=== PATIENT | female | born 1960 | race Two or more races ===

== ENCOUNTER 2017-09-14 09:47 | Day surgery (SDC) | payer BC, OTHER ==
[2017-09-14] MEDS ORDERED: CHONDR SU A NA/HYALUR INTRAOC KIT (SURGICARE) ONE (10:04)
[2017-09-14] MEDS ORDERED: LIDOCAINE 1% INJ-PF (10 MG/ML) 30 ML SDV ONE (10:04)
[2017-09-14] MEDS ORDERED: EPINEPHRINE INJ/PF 1 MG/1 ML AMPULE ONE (10:04)
[2017-09-14] MEDS: TROPICAMIDE 1% OPH SOLN 3 ML OD PRN ×3 (10:25→10:45)
[2017-09-14] MEDS: CYCLOPENTOLATE 0.2%/PHENYLEPHRINE 1% OPH SOLN 2 ML OD PRN ×3 (10:25→10:45)
[2017-09-14] MEDS: BESIFLOXACIN HCL 0.6% OPH SUSP 5 ML BOTTLE OD PRN ×4 (10:25→11:33)
[2017-09-14] MEDS: TETRACAINE HCL 0.5% OPH SOLN 2 ML OD PRN ×3 (10:26→11:09)
[2017-09-14] MEDS: KETOROLAC TROMETHAMINE 0.45% 4 DROP/0.4 ML DROPERETTE OD PRN ×2 (10:26→12:01)
[2017-09-14] MEDS ORDERED: MIDAZOLAM 2 MG/2 ML INJ ONE ×2 (10:50)
--- NOTE | 2017-09-14 21:58 | [facility] OPERATIVE REPORT E ---
[facility] Operative Report NAME: GIORGIO ASCENCIO AGE: 57Y DATE OF SURGERY: 09/14/2017 ROOM: PREOPERATIVE DIAGNOSIS: CATARACT, RIGHT EYE. POSTOPERATIVE DIAGNOSIS: CATARACT, RIGHT EYE. OPERATION: Cataract extraction with intraocular lens implant of the right eye. SURGEON: ABRIL FRANCES M.D. ANESTHESIA: Topical. PROCEDURE: After obtaining appropriate consent, the patient's right eye was prepped and draped in sterile fashion as well as the surgeon in a sterile manner and cataract surgery was started. First a paracentesis blade was used to make a small side-port incision. Viscoelastic was used to inflate the anterior chamber. Next a 2.4 mm incision was made with the paracentesis blade. A continuous capsulorrhexis incision was made using a cystotome and Utrata forceps. Following this hydrodissection was carried out to make the lens fully loose and mobile and it was rotated 90 degrees. Following this, a mcffgv-uyz-sarietg technique was used to phacoemulsify the lens with a CDE of 4.37. The remaining cortex was removed with irrigation/aspiration. Provisc was instilled into the capsular bag to inflate the bag. A SN60WF, 23.0 diopter lens was placed. The remaining viscoelastic material was removed with irrigation/aspiration. Following this, a 10-0 nylon suture was used to close the incision and it was found to be watertight. Vigamox was instilled in the eye and a protective shield was placed over the eye. The patient returned to the postoperative recovery in stable condition. DICTATING PHYSICIAN: ABRIL FRANCES M.D. 5020M 2153 Y#: [birth year] ID: [id number] JOB#: [id number] ACCT: [id number] cc:ABRIL FRANCES M.D. >
--- NOTE | 2017-09-14 22:04 | [facility] DISCHARGE SUMMARY E ---
[facility] Discharge Summary NAME: GIORGIO ASCENCIO AGE: 57Y ADMITTED: 09/14/2017 DISCHARGED: 09/14/2017 HOSPITAL COURSE: This is a 57-year-old female who underwent cataract extraction of the right eye. DIAGNOSIS: CATARACT, RIGHT EYE. She underwent surgery because she was having difficulty driving at night secondary to glare from headlights. DISCHARGE INSTRUCTIONS: She should be on a regular diet. No bending at her waist, no heavy lifting. She should use Besivance, Ilevro, and Durezol at 3 p.m. and 8 p.m. and sleep with a rigid shield. I will see her for her 1 day postoperative tomorrow. DICTATING PHYSICIAN: ABRIL FRANCES M.D. 5020M 2155 [facility]#: [id number] 2006 ID: [id number] JOB#: [id number] ACCT: [id number] cc:ABRIL FRANCES M.D. >
== END 2017-09-14 12:21 | disposition home or self-care (01) ==
LOC: SC 09:47
PROVIDERS: ATTEND Internal Medicine
PROC: 08RJ3JZ Replacement of Right Lens with Synthetic Substitute, Percutaneous Approach (ICD-10-PCS; principal; 2017-09-14 11:30)
DX: H25.813 Combined forms of age-related cataract, bilateral (principal); E11.9 Type 2 diabetes mellitus without complications; I10 Essential (primary) hypertension; G62.9 Polyneuropathy, unspecified; E78.00 Pure hypercholesterolemia, unspecified; Z88.8 Allergy status to other drugs, medicaments and biological substances; Z79.82 Long term (current) use of aspirin; Z79.899 Other long term (current) drug therapy; Z79.4 Long term (current) use of insulin
CPT/HCPCS: 66984; 82962; V2632; J2250; J3490 ×2; J0171; 160

== ENCOUNTER 2017-10-05 06:50 | Day surgery (SDC) | payer BC, OTHER ==
[~2017-10-05 06:50] MED LIST: KETOROLAC TROMETHAMINE 0.45% 4 DROP/0.4 ML DROPERETTE OS PRN
[2017-10-05] MEDS: TETRACAINE HCL 0.5% OPH SOLN 2 ML OS PRN ×3 (07:13→08:14)
[2017-10-05] MEDS: BESIFLOXACIN HCL 0.6% OPH SUSP 5 ML BOTTLE OS PRN ×4 (07:14→08:32)
[2017-10-05] MEDS: TROPICAMIDE 1% OPH SOLN 3 ML OS PRN ×3 (07:14→07:43)
[2017-10-05] MEDS: CYCLOPENTOLATE 0.2%/PHENYLEPHRINE 1% OPH SOLN 2 ML OS PRN ×3 (07:14→07:43)
[2017-10-05] MEDS ORDERED: LIDOCAINE 1% INJ-PF (10 MG/ML) 30 ML SDV ONE (07:14)
[2017-10-05] MEDS ORDERED: MIDAZOLAM 2 MG/2 ML INJ ONE (07:34)
[2017-10-05] MEDS ORDERED: FENTANYL CITRATE INJ/PF 100 MCG/2 ML AMPUL ONE (08:14)
[2017-10-05] MEDS: CHONDR SU A NA/HYALUR INTRAOC KIT (SURGICARE) ONE ×2 (08:14)
[2017-10-05] MEDS: EPINEPHRINE INJ/PF 1 MG/1 ML AMPULE ONE ×2 (08:14)
[2017-10-05] MEDS: TOBRAMYCIN SULFATE/DEXAMETH OPH OINTMENT 3.5 GM ONE ×2 (08:32)
--- NOTE | 2017-10-05 16:29 | [facility] OPERATIVE REPORT E ---
[facility] Oper[facility] NAME: GIORGIO ASCENCIO AGE: 57Y DATE OF SURGERY: 10/05/2017 ROOM: PREOPERATIVE DIAGNOSIS: CATARACT LEFT EYE. POSTOPERATIVE DIAGNOSIS: CATARACT LEFT EYE. OPERATION: Cataract extraction with Toric intraocular lens implant of the left eye with a toric multifocal lens. SURGEON: ABRIL FRANCES M.D. ANESTHESIA: Topical. COMPLICATIONS: None. ESTIMATED BLOOD LOSS: None. PROCEDURE: After appropriate consent was obtained and calculations made, the patient was brought back to the operating room where the patient was prepped and draped in sterile fashion. A lid speculum was placed and attention was directed to a paracentesis where a paracentesis blade made a small incision. Viscoelastic was then used to inflate the anterior chamber. Next a 2.4 mm incision was made with the paracentesis blade. A continuous capsulorhexis forceps of approximately 5 mm was done using a cystitome and capsulorhexis forceps. Hydrodissection was carried out to make the lens freely mobile and then a divide and conquer technique was used to remove the lens with a CDE of approximately 8.04. Following this, the remaining cortical material was removed with irrigation/aspiration. After this the patient was then again marked. The marking procedure started in the preoperative holding area where 180 and 0 was marked with a marker. Now that the patient was in the operating room a 360-degree marker was used to mesfin the axis at approximately 110 degrees and a toric lens of 23.5 diopters [id number] lens rotated to 27-degrees was injected into the bag after filling with viscoelastic and rotating into proper position. The I/A was used to remove the viscoelastic material and the toric lens appeared to be appropriately aligned. A 10-0 nylon suture was used to close the corneal incision and TobraDex was instilled into the eye and a pressure patch was placed with a protective shield. The patient returned to postoperative recovery in stable condition. DICTATING PHYSICIAN: ABRIL FRANCES M.D. 5194M 1625 PHY#: [id number] ID: [id number] JOB#: [id number] ACCT: [id number] cc:ABRIL FRANCES M.D. >
--- NOTE | 2017-10-05 16:34 | DISCHARGE SUMMARY E ---
Discharge Summary NAME: GIORGIO ASCENCIO : 1960 AGE: 57Y ADMITTED: 10/05/2017 DISCHARGED: 10/05/2017 HOSPITAL COURSE: This is a 57-year-old female who underwent cataract extraction with Toric IOL of the left eye. DIAGNOSIS: Cataract, left eye. She underwent surgery because she was having difficulty with an imbalance between both eyes. DISCHARGE INSTRUCTIONS: She should be on a regular diet. No bending at her waist, no heavy lifting. She should use her Besivance, Ilevro, and Durezol at 3 p.m. and 8 p.m. and sleep with a rigid shield. I will see her for her 1 day postoperative tomorrow. DICTATING PHYSICIAN: ABRIL FRANCES M.D. 5194M 1628 PHY#: [id number] ID: [id number] JOB#: [id number] ACCT: [id number] cc:ABRIL FRANCES M.D. >
== END 2017-10-05 09:08 | disposition home or self-care (01) ==
LOC: SC 06:50
PROVIDERS: ATTEND Internal Medicine
PROC: 08RK3JZ Replacement of Left Lens with Synthetic Substitute, Percutaneous Approach (ICD-10-PCS; principal; 2017-10-05 08:00)
DX: H25.812 Combined forms of age-related cataract, left eye (principal); Z96.1 Presence of intraocular lens; I10 Essential (primary) hypertension; E11.9 Type 2 diabetes mellitus without complications; Z79.899 Other long term (current) drug therapy; Z79.4 Long term (current) use of insulin; Z79.82 Long term (current) use of aspirin
CPT/HCPCS: 66984; 82962; V2787; J2250; J3490 ×3; J0171; J3010; 142